=== PATIENT | male | born 1955 | race Caucasian/White ===

== ENCOUNTER 2016-08-14 14:43 | Outpatient (CLI) | payer BC ==
[2016-08-14 14:53] LABS: BASOPHILS % 1.2 (0.0-1.5); EOSINOPHILS % 0.7 % (0.0-6.8); MEAN CORPUSCULAR VOLUME 97.2 fl (80.0-100.0); MONOCYTES % 6.8 % (0.0-11.0); NEUTROPHILS # 6.1 # k/uL (1.4-7.7)
[2016-08-14 15:15] LABS: eGFR (African) > 60; eGFR (Non-African) > 60
== END 2016-08-14 14:44 ==
LOC: LAB 14:43
PROVIDERS: ATTEND Physician Assistant
DX: R06.02 Shortness of breath (principal)
CPT/HCPCS: 36415; 80053; 83880; 85025

== ENCOUNTER 2016-08-15 07:21 | Outpatient (CLI) | payer BC ==
--- NOTE | 2016-08-15 20:55 | Diagnostic Imaging Report ---
ERIK CANCINO [facility] [id number] [facility] [address] [place] [address]. [id number] Report Submission Date: Aug 15, 2016 8:10:05 AM CDT Patient Study Name: SANG DURON Date: Aug 15, 2016 7:28:29 AM CDT Modality Type: CR Gender: M Description: CHEST : 51 Institution: [facility] Physician: ERIK CANCINO 2 views of the chest History: CXR, SOA ON EXERTION FOR ABOUT A MONTH WITH A COUGH, ELEVATED BNP Findings: No comparison studies Heart is normal in size. Left hemidiaphragm is obscured by opacity. No acute osseous pathology. Impression: 1. Left lower lobe and lingular infiltrate/atelectasis. Small left pleural effusion may be present. Suggest followup to resolution Electronically signed on Aug 15, 2016 8:10:05 AM CDT by: Hayley HIGH
== END 2016-08-15 07:22 ==
LOC: RAD 07:21
PROVIDERS: ATTEND Physician Assistant
DX: R79.89 Other specified abnormal findings of blood chemistry (principal)
CPT/HCPCS: 71020

== ENCOUNTER 2016-08-16 07:28 | Outpatient (CLI) | payer BC | END 2016-08-16 07:30 | LOC: RT 07:28 | PROVIDERS: ATTEND Physician Assistant | DX: R06.02 Shortness of breath (principal); R79.89 Other specified abnormal findings of blood chemistry; R00.2 Palpitations ==

== ENCOUNTER 2016-08-21 15:10 | Outpatient (CLI) | payer BC | END 2016-08-21 15:20 | disposition home or self-care (01) | LOC: CARD 15:10 | PROVIDERS: ATTEND Internal Medicine Cardiovascular Disease | DX: R06.00 Dyspnea, unspecified (principal) | CPT/HCPCS: 99213 ==

== ENCOUNTER 2016-10-02 10:38 | Outpatient (CLI) | payer BC | END 2016-10-02 10:40 | LOC: CARD 10:38 | PROVIDERS: ATTEND Internal Medicine Cardiovascular Disease | DX: R06.00 Dyspnea, unspecified (principal) | CPT/HCPCS: 94060; 99213 ==

== ENCOUNTER 2016-10-09 07:02 | Outpatient (CLI) | payer BC ==
[2016-10-09] MEDS ORDERED: ALBUTEROL SULFATE 2.5 MG/3 ML AMPUL.NEB NEB ONE (07:18)
== END 2016-10-09 07:03 ==
LOC: RT 07:02
PROVIDERS: ATTEND Internal Medicine Cardiovascular Disease
DX: R06.00 Dyspnea, unspecified (principal)
CPT/HCPCS: 94060

== ENCOUNTER 2016-11-03 08:50 | Emergency (ER) | payer BC ==
[~2016-11-03 08:50] MED LIST: EPINEPHrine 0.1 MG/ML DISP.SYRIN IVP STA
[2016-11-03] MEDS ORDERED: EPINEPHrine 0.1 MG/ML DISP.SYRIN IVP STA ×6 (08:53→09:13)
[2016-11-03] MEDS ORDERED: SODIUM BICARBONATE 5 MEQ/10 ML PED. IVP ONE ×2 (09:01→09:10)
[2016-11-03] MEDS ORDERED: EPINEPHrine 0.1 MG/ML DISP.SYRIN IVP ONE (09:21)
[2016-11-03] MEDS ORDERED: SODIUM BICARBONATE 50 MEQ/50 ML SYRINGE ONE (09:21)
--- NOTE | 2016-11-03 09:21 | ED Physician Documentation ---
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 Pt had little other PMHx. Pt c/o difficulty breathing overnight and this am c/o sob and called EMS. When EMS arrived, pt was pulseless with agonal breathing. 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 Mechanical compression cpr continued from field. Epinephrine 0.1 mg @ 3-5 minute intervals x 5 OG tube placed ABG: pH6.89; PCO2 35; pO2 118; HCO3 6.7; SaO2 94%. Bicarbonate 5 mEq amp x 2 Vfib on monitor shock x 1 Epinephrine 0.1 mg at 3-5 minute intervals x 2 CPR asystole Time of 09:15 General Adult Physical Exam - PHYSICAL EXAM GENERAL APPEARANCE: severe distress (intubated, unresponsive) EENT: other (pupils fixed and dilated) NECK: normal inspection RESPIRATORY: other (intubated) CVS: other (PEA on monitor; no palpable pulse) SKIN: pallor NEURO: other (unresponsive) Discharge Clincal Impression: Cardiopulmonary arrest Referrals: Primary Doctor,No [Primary Care Provider] - Condition: Critical Disposition: 20 Decision to Admit: NO Decision Time: 09:30
[2016-11-03 09:43] LABS: EOSINOPHILS % 0.7 % (0.0-6.8); MEAN CORPUSCULAR HEMOGLOBIN 32.9 pg (28.0-34.0); MEAN CORPUSCULAR VOLUME 107.4 fl (80.0-100.0); MONOCYTES % 4.4 % (0.0-11.0)
[2016-11-03 09:45] LABS: BASOPHILS % 1.1 (0.0-1.5)
[2016-11-03 09:59] LABS: eGFR (African) > 60; eGFR (Non-African) > 60
[2016-11-05 07:59] LABS: ABG BASE EXCESS -25.7 (-2 - +2); ABG PH 6.95 (7.35-7.45)
== END 2016-11-03 17:05 | disposition expired ==
LOC: ED 08:50
DX: I46.9 Cardiac arrest, cause unspecified (principal)
CPT/HCPCS: 36600; 80053; 82550; 82803; 84484; 85025; J0171; 92950; 96374; 96375; 99291; S1016